=== PATIENT | female | born 1945 | race Caucasian/White ===

== ENCOUNTER 2022-06-14 23:02 | Inpatient (IN) ==
[2022-06-14] MEDS ORDERED: *HR* Dextrose 50 % in Water (Syg) 50 ML SYRINGE IVP ONE (23:19)
[2022-06-14 23:53] LABS: Basophils % 0.2 %; Eosinophils % 0.1 %; Hematocrit 35.3 % (35.3-44.9); Immature Granulocytes % 0.4 % (0-4); Lymphocytes # 0.6 K/mcL (0.6-4.6); Lymphocytes % 4.5 %; Mean Corpuscular Hemoglobin 26.9 pg (28.0-33.3); Mean Corpuscular Volume 79.1 fL (83.0-100.0); Mean Platelet Volume 10.9 fL (9.4-12.4); Monocytes # 1.3 K/mcL (0.0-1.3); Monocytes % 9.9 %; Neutrophils # 10.8 K/mcL (1.6-8.9); Platelet Count 386 K/mcL (140-400); Red Blood Count 4.46 M/mcL (3.82-4.97); Red Cell Distribution Width 13.9 % (11.5-14.5); Segmented Neutrophils % 84.9 %; White Blood Count 12.8 K/mcL (4.3-11.1)
[2022-06-15 00:18] LABS: Albumin 3.3 g/dL (3.5-5.7); Albumin/Globulin Ratio 0.9 (1.1-2.2); Bilirubin,Total 8.2 mg/dL (0.3-1.0); Calcium 9.1 mg/dL (8.6-10.3); Globulin 3.6 g/dL (2.4-3.5); Magnesium 1.8 mg/dL (1.6-2.6); Potassium 2.9 mEq/L (3.5-5.1); Total Protein 6.9 g/dL (6.4-8.9); Troponin I 1.24 ng/mL (< 0.04)
[2022-06-15] MEDS ORDERED: 0.9 % Sodium Chloride 1,000 ML IV ONE (00:23)
[2022-06-15] MEDS ORDERED: *HR* Heparin 5,000 UNIT/ML VIAL IVP ONE (02:03)
[2022-06-15] MEDS ORDERED: *HR* Heparin 5,000 UNIT/ML VIAL IVP PRN ×2 (02:03)
[2022-06-15] MEDS: Heparin 25,000UNIT/250ML 1/2NS 25,000 UNIT/250 ML IV.SOLN IVC SCH (03:33)
[2022-06-15] MEDS ORDERED: Melatonin 3 MG TABLET PO PRN (03:49)
[2022-06-15] MEDS ORDERED: Naloxone 0.4 MG/ML INJ IVP PRN (03:49)
[2022-06-15] MEDS ORDERED: Acetaminophen 325 MG TABLET PO PRN (03:49)
[2022-06-15] MEDS ORDERED: Albuterol 2.5 MG/3 ML NEBULIZER IH ONE (03:50)
[2022-06-15] MEDS ORDERED: Sennosides/Docusate Sodium TABLET PO PRN (03:50)
[2022-06-15 03:52] LABS: Hemoglobin 10.8 g/dL (11.5-15.4); Heparin anti-factor XA UFH 0.06 IU/mL (0.30-0.70); Mean Corpuscular HGB Conc 33.8 g/dL (31.6-35.5); Mean Corpuscular Hemoglobin 26.5 pg (28.0-33.3); Mean Corpuscular Volume 78.6 fL (83.0-100.0); Mean Platelet Volume 10.7 fL (9.4-12.4); Platelet Count 363 K/mcL (140-400); Red Blood Count 4.07 M/mcL (3.82-4.97); Red Cell Distribution Width 13.7 % (11.5-14.5); White Blood Count 12.9 K/mcL (4.3-11.1)
[2022-06-15 03:53] LABS: INR 1.5; Prothrombin Time 16.4 Seconds (9.4-12.1)
[2022-06-15] MEDS ORDERED: *HR* Dextrose 50 % in Water (Syg) 50 ML SYRINGE IVP PRN (04:42)
[2022-06-15] MEDS ORDERED: D5% in Water 1,000 ML IVC PRN (04:42)
[2022-06-15] MEDS ORDERED: Dextrose Gel 15 GM/37.5 ML TUBE PO PRN ×2 (04:42)
[2022-06-15] MEDS: D5% in 0.9% NACL 1,000 ML IVC SCH ×4 (06:04→17:37)
[2022-06-15] MEDS: Insulin LISPRO 300 UNITS/3 ML VIAL SUBQ SCH ×4 (07:43→21:01)
[2022-06-15 09:13] LABS: Calcium 8.3 mg/dL (8.6-10.3); Potassium 2.9 mEq/L (3.5-5.1)
[2022-06-15 09:17] LABS: Troponin I 0.97 ng/mL (< 0.04)
[2022-06-15] MEDS ORDERED: *HR* OxyCODONE Immed Rel 5 MG TABLET PO PRN (15:50)
[2022-06-15] MEDS: Aspirin Enteric Coated 81 MG Tablet PO SCH (15:59)
[2022-06-15] MEDS ORDERED: *HR* Metoprolol 5 MG/5 ML VIAL IVP STA (17:19)
[2022-06-15] MEDS ORDERED: Furosemide 20 MG/2 ML VIAL IVP ONE (18:05)
[2022-06-15] MEDS ORDERED: Ondansetron 4 MG/2 ML VIAL IVP ONE (21:15)
[2022-06-15] MEDS ORDERED: Ipratropium/Albuterol Neb 3 ML IH PRN (23:40)
[2022-06-16 01:41] LABS: Adenovirus Not Detected (Not Detect); Bordetella Pertussis Not Detected (Not Detect); Chlamydophila pneumoniae Not Detected (Not Detect); Coronavirus 229E Not Detected (Not Detect); Coronavirus HKU1 Not Detected (Not Detect); Coronavirus NL63 Not Detected (Not Detect); Coronavirus OC43 Not Detected (Not Detect); Human Metapneumovirus Not Detected (Not Detect); Human Rhinovirus/Enterovirus Not Detected (Not Detect); Influenza A Subtype 2009 H1 Not Detected (Not Detect); Influenza B Not Detected (Not Detect); Mycoplasma pneumoniae Not Detected (Not Detect); Parainfluenza Virus 1 Not Detected (Not Detect); Parainfluenza Virus 2 Not Detected (Not Detect); Parainfluenza Virus 3 Not Detected (Not Detect); Parainfluenza Virus 4 Not Detected (Not Detect); Respiratory Syncytial Virus Not Detected (Not Detect); SARS-CoV-2 Not Detected (Not Detect)
[2022-06-16 01:58] LABS: Basophils % 0.1 %; Eosinophils % 0.1 %; Hemoglobin 10.8 g/dL (11.5-15.4); Immature Granulocytes % 0.8 % (0-4); Lymphocytes # 0.7 K/mcL (0.6-4.6); Lymphocytes % 5.2 %; Mean Corpuscular HGB Conc 33.8 g/dL (31.6-35.5); Mean Corpuscular Hemoglobin 26.7 pg (28.0-33.3); Mean Corpuscular Volume 79.2 fL (83.0-100.0); Mean Platelet Volume 10.8 fL (9.4-12.4); Monocytes # 0.9 K/mcL (0.0-1.3); Monocytes % 6.9 %; Neutrophils # 11.2 K/mcL (1.6-8.9); Platelet Count 322 K/mcL (140-400); Red Blood Count 4.04 M/mcL (3.82-4.97); Red Cell Distribution Width 14.2 % (11.5-14.5); Segmented Neutrophils % 86.9 %; White Blood Count 12.9 K/mcL (4.3-11.1)
[2022-06-16] MEDS: Heparin 25,000UNIT/250ML 1/2NS 25,000 UNIT/250 ML IV.SOLN IVC SCH (02:47)
[2022-06-16 03:15] LABS: Albumin 2.9 g/dL (3.5-5.7); Bilirubin,Total 8.4 mg/dL (0.3-1.0); Calcium 8.1 mg/dL (8.6-10.3); Chol/HDL Ratio 20.8 (0-4.9); Globulin 2.8 g/dL (2.4-3.5); Potassium 3.9 mEq/L (3.5-5.1); Thyroid Stimulating Hormone 3.004 mcIU/mL (0.340-5.600); Total Protein 5.7 g/dL (6.4-8.9)
[2022-06-16 03:49] LABS: Bacteria,Urine Many per hpf (None-Few); Bilirubin,Urine Moderate (Negative); Blood,Urine Small (Negative); Budding Yeast,Urine Many per hpf (None Seen); Clarity,Urine Ex.Turbid (Clear); Color,Urine Dark-Yellow (Yellow); Glucose,Urine (UA) Normal (Normal); Ketones,Urine Trace mg/dL (Negative); Leukocyte Esterase,Urine Large (Negative); Nitrite,Urine Negative (Negative); PH,Urine 7.5 pH Units (5.0-8.0); Protein,Urine >=300 mg/dL (Neg-Trace); Specific Gravity,Urine 1.013 (1.010-1.025); Squamous Epithelial Cell,Urine Moderate per hpf (None-Few); Urobilinogen,Urine Normal (Normal); WBC,Urine TNTC per hpf (0-3)
[2022-06-16 05:23] LABS: Protein/Creatinine Ratio,Urine 2.91 mg/mg (0.00-0.20); Sodium, Urine 50.4 mEq/L
[2022-06-16] MEDS ORDERED: *HR* LORazepam 2 MG/ML VIAL IVP ONE (06:54)
[2022-06-16 07:08] LABS: ABG Base Excess 3 mEq/L (-2 to 3); ABG HCO3 27 mEq/L (21-27); ABG Oxygen Saturation 91 % (95-98); ABG PCO2 41 mmHg (35-45); ABG PH 7.42 pH Units (7.32-7.45); ABG PO2 59 mmHg (85-104); ABG TCO2 28 mEq/L (20-26)
[2022-06-16] MEDS ORDERED: Furosemide 20 MG/2 ML VIAL IVP ONE (07:25)
[2022-06-16] MEDS: Aspirin Enteric Coated 81 MG Tablet PO SCH (07:53)
[2022-06-16] MEDS: Insulin LISPRO 300 UNITS/3 ML VIAL SUBQ SCH ×4 (07:53→20:45)
[2022-06-16] MEDS ORDERED: Nitroglycerin 0.4 MG TAB.SUBL SL PRN (08:13)
[2022-06-16] MEDS ORDERED: Haloperidol Lactate 5 MG/ML VIAL IVP PRN (12:35)
[2022-06-16] MEDS ORDERED: Glycopyrrolate 0.2 MG/ML VIAL IVP PRN (12:36)
[2022-06-16] MEDS: *HR* HYDROmorphone (PF) 1 MG/ML SYRINGE IVP PRN ×2 (12:58→20:34)
[2022-06-16] MEDS: *HR* LORazepam 2 MG/ML VIAL IVP PRN ×2 (14:30→20:34)
[2022-06-17] MEDS: *HR* HYDROmorphone (PF) 1 MG/ML SYRINGE IVP PRN ×3 (01:59→10:30)
[2022-06-17] MEDS: *HR* LORazepam 2 MG/ML VIAL IVP PRN ×2 (02:01→06:01)
[2022-06-17 07:35] VITALS: BP 120/72; PULSE 68; TEMP 97.5; O2SAT 90
[2022-06-17] MEDS: Aspirin Enteric Coated 81 MG Tablet PO SCH ×2 (09:23→11:00)
[2022-06-17] MEDS: Insulin LISPRO 300 UNITS/3 ML VIAL SUBQ SCH (09:24)
[2022-06-17 16:53] LABS: Estimated Average Glucose 217 mg/dl; Hemoglobin A1C 9.2 %
== END 2022-06-17 14:05 | disposition hospice, inpatient (51) | DRG 280 ==
LOC: 2ANU 23:02 → EMEROOARM 23:02 → SUATTDRO 06-15 12:57 → 2ANU 06-15 13:58
PROVIDERS: ADMIT Internal Medicine; ATTEND Internal Medicine

== ENCOUNTER 2022-06-17 12:28 | Inpatient (IN) ==
[2022-06-17] MEDS ORDERED: Bisacodyl 10 MG RECTAL SUPPOSITORY RC PRN (13:23)
[2022-06-17] MEDS ORDERED: Nitroglycerin 0.4 MG TAB.SUBL SL PRN (13:29)
[2022-06-17] MEDS: *HR* HYDROmorphone (PF) 1 MG/ML SYRINGE IVP PRN ×2 (14:45→20:18)
[2022-06-17] MEDS: Loratadine 10 MG TABLET PO SCH (15:18)
[2022-06-17] MEDS: Ondansetron ODT 4 MG TAB.RAPDIS SL PRN (15:21)
[2022-06-17] MEDS: Sennosides/Docusate Sodium TABLET PO SCH (20:52)
[2022-06-18] MEDS: *HR* HYDROmorphone (PF) 1 MG/ML SYRINGE IVP PRN ×5 (01:23→20:52)
[2022-06-18] MEDS: Loratadine 10 MG TABLET PO SCH (09:04)
[2022-06-18] MEDS: *HR* OxyCODONE Immed Rel 5 MG TABLET PO PRN ×2 (09:04→15:05)
[2022-06-18] MEDS: Ondansetron ODT 4 MG TAB.RAPDIS SL PRN ×2 (09:04→15:06)
[2022-06-18] MEDS: Sennosides/Docusate Sodium TABLET PO SCH ×2 (09:05→19:45)
[2022-06-18] MEDS: Cholestyramine 4 GM POWD.PACK PO SCH (12:06)
[2022-06-18] MEDS: Haloperidol Oral Conc 10 MG/5 ML UDC PO PRN ×2 (16:34→20:52)
[2022-06-19] MEDS: *HR* HYDROmorphone (PF) 1 MG/ML SYRINGE IVP PRN ×4 (01:19→15:12)
[2022-06-19] MEDS: Haloperidol Oral Conc 10 MG/5 ML UDC PO PRN ×3 (01:20→18:53)
[2022-06-19] MEDS ORDERED: Benzonatate 100 MG CAPSULE PO PRN (09:20)
[2022-06-19 09:39] VITALS: PULSE 90
[2022-06-19] MEDS: Loratadine 10 MG TABLET PO SCH (09:41)
[2022-06-19] MEDS: Sennosides/Docusate Sodium TABLET PO SCH ×2 (09:41→21:32)
[2022-06-19] MEDS: Cholestyramine 4 GM POWD.PACK PO SCH (09:41)
[2022-06-19] MEDS: *HR* LORazepam 2 MG/ML VIAL IVP PRN ×2 (13:45→20:29)
[2022-06-19] MEDS ORDERED: Scopolamine Patch 1.5 MG PATCH.TD72 TD SCH (16:00)
[2022-06-19] MEDS ORDERED: Scopolamine Patch 1.5 MG PATCH.TD72 ONE (16:30)
[2022-06-19] MEDS: Atropine Sulfate 1% 40 DROP/2 ML BOTTLE SL PRN ×2 (16:36→20:30)
[2022-06-19 21:23] VITALS: BP 101/50; TEMP 99.1; O2SAT 84
== END 2022-06-19 22:40 | disposition expired | DRG 951 ==
LOC: 2ANU 14:06
PROVIDERS: ADMIT Internal Medicine Hospice and Palliative Medicine; ATTEND Internal Medicine Hospice and Palliative Medicine